=== PATIENT | female | born 1995 | race Caucasian/White ===

== ENCOUNTER 2019-02-26 12:45 | Observation (INO) | payer OTHER ==
[~2019-02-26] VITALS: Ht 162.6 cm; Wt 105.5 kg
[~2019-02-26 12:45] MED LIST: IBUPROFEN600 MG PO; PERCOCET 5-3251 TAB PO; PRENAVITE1 TAB PO
[2019-02-26 12:50] VITALS: Ht 162.6 cm; Wt 105.5 kg
[2019-02-26] MEDS ORDERED: VITAMIN D2000 UNIT PO (12:52)
[2019-02-26] MEDS ORDERED: MAG-OX 400 MG400 MG PO (12:52)
--- NOTE | 2019-02-26 12:55 | NUR ---
URINE SENT TO THE LAB.
[2019-02-26 13:50] LABS: HEMATOCRIT 39.2 % (36.0-48.0); HEMOGLOBIN 13.5 g/dL (12-16); LYMPHOCYTES 45.7 % (15-50); MCH 29.4 pg (26.0-34.0); MCHC 34.4 g/dL (31.0-37.0); MCV 85.4 fL (80.0-100.0); NEUTROPHILS 47.2 % (40-80); PLATELET COUNT 239 10x3/uL (130-400); RBC 4.59 10x6/uL (4.00-5.40); RDW 12.8 % (11.5-14.5); WBC 6.6 10x3/uL (4.8-10.8)
[2019-02-26 13:54] LABS: HCG SERUM POSITIVE (NEGATIVE)
[2019-02-26 13:58] LABS: ALBUMIN 3.9 g/dL (3.4-5.0); ALKALINE PHOSPHATASE 51 U/L (46-116); ALT (SGPT) 26 U/L (10-68); CALC OSMOLALITY 278 mosm/kg (275-300); CALCIUM 8.9 mg/dL (8.5-10.1); CARBON DIOXIDE 25.9 mmol/L (21.0-32.0); CHLORIDE - SERUM 105 mmol/L (98-107); CREATININE - SERUM 0.8 mg/dL (0.6-1.3); GLUCOSE 98 mg/dL (74-106); POTASSIUM - SERUM 3.3 mmol/L (3.5-5.1); PROTEIN - SERUM 7.9 g/dL (6.4-8.2); SODIUM 140 mmol/L (136-145); UREA NITROGEN 13 mg/dL (7-18); eGFR NON AFRICAN AMERICAN > 90 mL/min (90-120)
[2019-02-26 14:05] LABS: HCG - QUANTITATIVE (MATERNAL) 375 mIU/mL
[2019-02-26 14:31] LABS: APPEARANCE CLOUDY (CLEAR); BILIRUBIN NEGATIVE (NEGATIVE); COLOR YELLOW (YELLOW); GLUCOSE NEGATIVE (NEGATIVE); KETONE NEGATIVE (NEGATIVE); NITRITE NEGATIVE (NEGATIVE); PROTEIN TRACE mg/dL (NEGATIVE); SPECIFIC GRAVITY 1.025 (1.005-1.020); UROBILINOGEN NORMAL (NORMAL); WHITE CELLS - URINE 0-5 /hpf (0-5)
[2019-02-26 14:32] LABS: BACTERIA MANY /hpf (NONE SEEN); EPITHELIAL CELLS 0-5 /hpf (0-5); MUCUS <1+ /lpf (NONE SEEN)
--- NOTE | 2019-02-26 15:20 | NUR ---
ERP OK WITH PROVIDING PT WITH FLUIDS TO FILL HER BLADDER. TWO LARGE CUPS OF ICE WATER PROVIDED.
--- NOTE | 2019-02-26 19:34 | NUR ---
DOMI FROM L&D CALLED REQUESTING PT BE SENT [place] TO RECOVERY ROOM ONCE ADMITTED.
[2019-02-26 20:14] VITALS: BP 140/78
--- NOTE | 2019-02-26 20:16 | NUR ---
PT REC'D TO LABOR AND DELIVERY VIA STRETCHER FROM ER WITH A DX OF VAGINAL BLEEDING/RULE OUT ECTOPIC . DR LEE ON THE WAY TO SEE PATIENT. Estefani HUGHES RN
--- NOTE | 2019-02-26 20:33 | NUR ---
DR LEE AT BEDSIDE AT THIS TIME. BEDISDE ULTRASOUND PERFORMED AT 2039. DICUSSSAMANTHA PLAN OF CARE AT LENGTH WITH PATIENT. PT GIVEN THE OPTION TO STAY UNTIL THE MORNING AND SEE DR LEE AT HIS OFFICE OR GOING HOME AND RETURNING TO HIS OFFICE. GAVE PT AND SPOUSE TIME TO DISCUSS OPTIONS. BENEFITS AND RISKS WERE EXPLAINED PER . Estefani HUGHES RN
--- NOTE | 2019-02-26 21:00 | NUR ---
SPOUSE OF PT STATES THAT PT WOULD LIKE TO BE DISCHARGED. MD MADE AWARE OF THEIR DECISION. MD INFORMED PT TO RETURN TO THE OFFICE TIN THE AM AND HE WOULD SEE HER. PT GIVEN AN APPOINTMENT CARD BY DR LEE. Estefani CULLEN RN
--- NOTE | 2019-02-26 21:13 | NUR ---
PT DISCHARGED IN STABLE CONDITION. PT REMINDED TO KEEP APPOINTMENT WITH DR LEE IN THE AM. UNDERSTANDING VERBALIZED. Estefani HUGHES RN
== END 2019-02-26 21:13 | disposition home or self-care (01) ==
LOC: D.ER 12:45 → D.LD 19:47 → OBSVTIME 19:47 → D.LD 21:13
PROVIDERS: Family Medicine; ADMIT Obstetrics & Gynecology; ATTEND Obstetrics & Gynecology
DX: O26.851 Spotting complicating pregnancy, first trimester (principal); Z3A.09 9 weeks gestation of pregnancy; O34.81 Maternal care for other abnormalities of pelvic organs, first trimester; D49.59 Neoplasm of unspecified behavior of other genitourinary organ

== ENCOUNTER 2019-07-23 08:39 | Emergency (ER) | payer OTHER ==
[~2019-07-23] VITALS: Ht 162.6 cm; Wt 110.0 kg
[~2019-07-23 08:39] MED LIST changes: +MAG-OX 400 MG400 MG PO; +VITAMIN D2000 UNIT PO
[2019-07-23 08:43] VITALS: BP 134/87; Ht 162.6 cm; Wt 110.0 kg
[2019-07-23 09:13] LABS: BASOPHILS 0.1 % (0-2); EOSINOPHILS 0.3 % (0-7); HEMATOCRIT 43.3 % (36.0-48.0); HEMOGLOBIN 14.6 g/dL (12-16); IMMATURE GRANULOCYTES 0.1 % (0-5); LYMPHOCYTES 30.1 % (15-50); MCH 29.4 pg (26.0-34.0); MCHC 33.7 g/dL (31.0-37.0); MCV 87.1 fL (80.0-100.0); MEAN PLATELET VOLUME 9.5 fL (7.4-10.4); MONOCYTES 6.9 % (2-11); NEUTROPHILS 62.5 % (40-80); PLATELET COUNT 258 10x3/uL (130-400); RBC 4.97 10x6/uL (4.00-5.40); RDW 12.6 % (11.5-14.5); WBC 7.4 10x3/uL (4.8-10.8)
[2019-07-23 09:14] LABS: CALC OSMOLALITY 272 mosm/kg (275-300); CALCIUM 8.9 mg/dL (8.5-10.1); CARBON DIOXIDE 24.4 mmol/L (21.0-32.0); CHLORIDE - SERUM 104 mmol/L (98-107); CREATININE - SERUM 0.6 mg/dL (0.6-1.3); GLUCOSE 95 mg/dL (74-106); POTASSIUM - SERUM 3.5 mmol/L (3.5-5.1); SODIUM 137 mmol/L (136-145); UREA NITROGEN 9 mg/dL (7-18); eGFR NON AFRICAN AMERICAN > 90 mL/min (90-120)
[2019-07-23 09:24] LABS: APPEARANCE CLOUDY (CLEAR); BACTERIA MODERATE /hpf (NEGATIVE); BILIRUBIN NEGATIVE (NEGATIVE); COLOR YELLOW (YELLOW); EPITHELIAL CELLS 0-5 /hpf (0-5); GLUCOSE NEGATIVE (NEGATIVE); KETONE NEGATIVE (NEGATIVE); MUCUS <1+ /lpf (NONE SEEN); NITRITE NEGATIVE (NEGATIVE); PROTEIN NEGATIVE (NEGATIVE); WHITE CELLS - URINE 0-5 /hpf (NEGATIVE)
[2019-07-23 09:42] LABS: ALBUMIN 3.6 g/dL (3.4-5.0); ALKALINE PHOSPHATASE 51 U/L (46-116); ALT (SGPT) 25 U/L (10-68); BILIRUBIN - TOTAL 0.29 mg/dL (0.2-1.3); HCG - QUANTITATIVE (MATERNAL) 154131 mIU/mL; PROTEIN - SERUM 7.6 g/dL (6.4-8.2)
== END 2019-07-23 10:24 | disposition home or self-care (01) ==
LOC: D.ER 08:39
PROVIDERS: Emergency Medicine
DX: O26.851 Spotting complicating pregnancy, first trimester (principal); Z3A.08 8 weeks gestation of pregnancy

== ENCOUNTER 2020-02-20 05:52 | Inpatient (IN) | payer MEDICAID ==
[2020-02-20] VITALS (8 sets, daily range): BP systolic 104–141; BP diastolic 54–71; Ht 162.6 cm; Wt 128.4 kg
[~2020-02-20] VITALS: Ht 162.6 cm; Wt 128.4 kg
--- NOTE | ~2020-02-20 | OP ---
PATIENT NAME: MELY HUTCHINS MEDICAL RECORD: [id number] :93 LOCATION:[id number] ADMISSION DATE:02/20/20 SURGEON: SHELTON GIRALDO MD DATE OF OPERATION: 02/20/2020 PREOPERATIVE DIAGNOSES: 1. Term intrauterine at 39 weeks. 2. History of previous section POSTOPERATIVE DIAGNOSES: 1. Term intrauterine at 39 weeks. 2. History of previous section SURGEON: Shelton Giraldo MD PROCEDURE: Repeat low transverse section. ANESTHESIA: Regional via spinal. INTRAVENOUS FLUIDS: Per anesthesia record. ESTIMATED BLOOD LOSS: 1000 cc. FINDINGS: 1. Viable infant, Apgars 9 at 1 and 9 at 5. 2. Placenta delivered manually intact, 3-vessel cord noted. 3. Normal adnexa bilaterally. COMPLICATIONS: None apparent. SPECIMENS: Include placenta and cord for gases. PROCEDURE IN DETAIL: The patient was taken to the operating room where regional anesthesia was achieved without any difficulty. The patient was then prepped and draped in normal sterile fashion in the dorsal supine position. SCDs were on and functioning normally. A Arboleda catheter had been placed and was draining freely. Following prep and drape, a repeat Pfannenstiel skin incision was made, extended downward to the underlying subcutaneous fat to level of the fascia. The fascia was then excised in the midline and extended laterally using the Amato scissors. The superior and inferior aspects of the fascial incision was then grasped with Austin clamps times 2, tented upward, and sharply dissected from underlying rectus muscle using the Amato scissors and the Bovie cautery. Rectus muscles were then bluntly in the midline. The peritoneum entered sharply at the superior aspect of the incision. The peritoneal incision was extended downward using the Metzenbaum scissors and a bladder blade was placed into the pelvis. A bladder flap was created by excising the anterior leaf of the broad ligament across the lower uterine segment. A low transverse incision was made, extended superiorly and inferiorly using the Pelosi method. The vertex was delivered atraumatically followed by the body. The was bulb suctioned upon delivery. Cord was clamped times 2, cut, and the was handed to the awaiting nursery team. Cord was obtained for gases and the placenta was removed manually and intact. A 3-vessel cord was noted. The uterus was exteriorized, cleared of all clots and debris and then vigorously massaged until good uterine tone was noted. The posterior cul-de-sac was then thoroughly irrigated and uterus was replaced into the pelvis. Anterior OPERATIVE REPORT [id number] MELY HUTCHINS cul-de-sac was then thoroughly irrigated and the uterine incision was found to be hemostatic. Counts were correct times 2 for needles, sponges, and instruments. The fascia was repaired with 0 loop PDS times 1. The skin was repaired with 3-0 Monocryl in a running subcutaneous fashion with Dermabond. The patient tolerated the procedure well, was transported to the postanesthesia recovery stable without incident. TRANSINT:[id number] Voice Confirmation ID: [id number] DOCUMENT ID: [id number] SHELTON GIRALDO MD CC: [id number] DICTATION DATE: 02/23/20806 STRAINER TENDER: 02/23/20 1023 DIS IN 02/22/20 [facility] [address] [id number]
--- NOTE | ~2020-02-20 | DS ---
PATIENT:MELY HUTCHINS :93 MEDICAL RECORD: [id number] DISCHARGE SUMMARY ADMISSION DATE: 02/20/20 DISCHARGE DATE: 02/22/20 The patient was admitted on 02/20/2020. HOSPITAL COURSE: A 24-year-old at 39 weeks, admitted for repeat section. The patient was noted to be A negative, group B strep negative, and rubella immune. PAST MEDICAL HISTORY: The patient reported no significant past medical history. PAST SURGICAL HISTORY: Significant for previous section. ALLERGIES: The patient also has history of previous ectopic . MEDICATIONS: Included vitamins. FAMILY HISTORY: The patient reported no significant past family history. SOCIAL HISTORY: Negative times 3. PHYSICAL EXAMINATION: On initial assessment: VITAL SIGNS: Are stable. The patient was afebrile and normotensive. LUNGS: Clear to auscultation. CARDIOVASCULAR: Regular rate and rhythm. PELVIC: Uterus was appropriately sized and nontender. EXTREMITIES: Lower extremities are free of erythema, swelling or Homans sign. wellbeing was reassuring with category 1 tracing in the 140s with moderate variability. ASSESSMENT AND PLAN: 1. Admission, term intrauterine at 39 weeks. 2. History of previous section. The patient was noted to be Rh negative. Plan at that time for repeat . Risks and benefits were explained. wellbeing was noted to be reassuring. Operative report is as dictated. The patient did well overnight on postop day #0, on Dilaudid DRAPERY CUTTER MACHINE with IV Toradol for pain control. The patient continued on IV fluids and started on clear liquid diet. SCDs were on and functioning normally overnight and a Arboleda catheter was left in place. The patient was advanced to the general diet overnight. On the morning of postop day #1, the patient continued to improve. Vital signs are stable. The patient was afebrile and normotensive. Hemoglobin was found to be appropriate for blood loss. The patient was advanced to p.o. pain meds and the Arboleda catheter was discontinued and ambulation begun. The patient continued to improve on postop day #1. On the morning of postop day #2, the patient remained afebrile and normotensive. The uterus was infraumbilical and appropriately tender. Incision was clean, dry and intact. The patient reported only minimal lochia overnight. The patient was discharged on postop day #2 with instructions to follow up in 1 week for wound check. TRANSINT:[id number] Voice Confirmation ID: [id number] DOCUMENT ID: [id number] DISCHARGE SUMMARY REPORT [id number] MELY HUTCHINS MICHAEL W MD CC: [id number] DICTATION DATE: 02/23/20809 ENDOCRINOLOGY TEACHER: 02/23/202153 DIS IN 02/22/20 [facility] [address] [id number]
[2020-02-20 06:22] LABS: HEMATOCRIT 35.8 % (36.0-48.0); HEMOGLOBIN 11.9 g/dL (12-16); MCH 27.4 pg (26.0-34.0); MCHC 33.2 g/dL (31.0-37.0); MCV 82.5 fL (80.0-100.0); MEAN PLATELET VOLUME 9.5 fL (7.4-10.4); RBC 4.34 10x6/uL (4.00-5.40); RDW 12.2 % (11.5-14.5); WBC 7.9 10x3/uL (4.8-10.8)
[2020-02-20] MEDS ORDERED: ZOFRAN4 MG PO (06:25)
--- NOTE | 2020-02-20 10:19 | NUR ---
rec'd pt back from or recovery post .
--- NOTE | 2020-02-20 11:00 | NUR ---
SHIFT ASSESSMENT COMPLETE. SEE FLOWSHEET FOR DOCUMENTATION. TENNIS DIRECTOR STARTED, VERIFIED WITH AKASH RN. TENNIS DIRECTOR EDUCATION COMPLETED. PT DENIES ANY QUESTION OR CONCERNS AT THIS TIME. RATES PAIN 0 ON A SCALE OF 0/10. ICE CHIPS GIVEN UPON REQUEST.
--- NOTE | 2020-02-20 12:05 | NUR ---
ROUNDING WITH PATIENT. INCENTIVE SPIROMETER EDUCATION COMPLETE. PT DENIES QUESTION ON IT. MODERATE RUBRA LOCHIA NOTED ON VAGINAL PAD. PT DENIES ANY PAIN AT THIS TIME. PAD CHANGED. SPRITE GIVEN TO PATIENT PER REQUEST.
--- NOTE | 2020-02-20 13:44 | NUR ---
ROUNDING ON PT. VAGINAL BLEEDING HAS SLOWED. RUBRA LOCHIA SMALL AMOUNT ON PAD. PAD CHANGED. PT DENIES PAIN. STATES FEELING IN LEGS STARTING TO COME BACK. DENIES NEEDS AT THIS TIME.
--- NOTE | 2020-02-20 14:30 | NUR ---
ROUNDING WITH PATIENT. VITALS STABLE. 150CC CLEAR URINE EMPTIED FROM OH CATHETER. SCD'S IN PLACE. MINIMAL BLOOD DRAINAGE ON PAD. PT DENIES PAIN OR NEEDS AT THIS TIME.
[2020-02-20 15:13] LABS: BASOPHILS 0.1 % (0-2); EOSINOPHILS 0.1 % (0-7); HEMATOCRIT 29.8 % (36.0-48.0); HEMOGLOBIN 9.7 g/dL (12-16); IMMATURE GRANULOCYTES 0.2 % (0-5); LYMPHOCYTES 15.5 % (15-50); MCH 27.2 pg (26.0-34.0); MCHC 32.6 g/dL (31.0-37.0); MCV 83.7 fL (80.0-100.0); MEAN PLATELET VOLUME 9.2 fL (7.4-10.4); MONOCYTES 8.7 % (2-11); NEUTROPHILS 75.4 % (40-80); RBC 3.56 10x6/uL (4.00-5.40); RDW 12.4 % (11.5-14.5)
[2020-02-20 15:20] LABS: PLATELET COUNT 196 10x3/uL (130-400); WBC 11.4 10x3/uL (4.8-10.8)
--- NOTE | 2020-02-20 17:00 | NUR ---
ROUNDING WITH PATIENT. PATIENT RATES PAIN 7/10 IN ABDOMEN/INCISION SITE. TORADOL GIVEN PER PATIENT REQUEST. EDUCATION PROVIDED ON TORADOL. MINIMAL BLEEDING ON AIDEN PAD. SCD'S ON. PT DENIES ANY NEEDS AT THIS TIME.
--- NOTE | 2020-02-20 18:28 | NUR ---
ROUNDING WITH PATIENT. PATIENT RATES PAIN 0/10. STATES FEELS MUCH BETTER AFTER TORADOL AND EATING. DENIES NEEDS AT THIS TIME.
--- NOTE | 2020-02-20 19:30 | NUR ---
REPORT GIVEN BY BISHOP ALFREDO
--- NOTE | 2020-02-20 20:00 | NUR ---
INTRODUCED SELF TO PT. EXPLAINED THAT I WOULD BE HER NURSE JORGE L. ALSO INFORMED PT AND HER THAT SHE WOULD BE MOVING TO ANOTHER ROOM IN THE NEXT FEW MINUTES. THEY PACKED THINGS UP AND ARE READY TO GO.
--- NOTE | 2020-02-20 20:30 | NUR ---
PT MOVED VIA BED TO THE TUB ROOM. THEY LIKE THEIR NEW ROOM. ASSESSMENT COMPLETED. PT SKIN WARM AND DRY. IV IN THE LEFT HAND INFUSING WELL. OH CATHETER IN PLACE DRAINING LIGHT MAYI COLORED URINE. SCD'S IN PLACE ON BILATERAL LEGS. PT HAS HER INCENTIVE SPIROMETER. SHE CAN GET THE METER TO 2000. SHE HAS BEEN INSTRUCTED ON THE USE AND ENCOURAGED TO CONT USE. HER INCISION LOOKS GOOD. NO DRAINAGE NOTED. SHE HAS A PAD COVERING THE INCISION. LOCHIS IS SMALL TO MED. SHE WAS CLEANED UP AND SOME CLOTS WERE RECOVERED. SHE HAS A DILAUDID DIRECT MARKETING EXECUTIVE PUMP AND SHE KNOWS HOW TO USE. SHE WILL START TO CRY EVERY NOW AND THEN OVER PAIN AND SHE IS REMINDED TO USE THE PAC PUMP. HER IS IN THE ROOM AND HE IS EXCEPTIONALLY ATTENTIVE TO BOTH PT AND THE BABY.
--- NOTE | 2020-02-20 22:00 | NUR ---
PT IS RESTING QUIETLY IN BED. NO C/O OR NEEDS AT THIS TIME. HOSE SPRAYER CONT. AT BEDSIDE.
--- NOTE | 2020-02-21 | NUR ---
SLEEPING QUIETLY. IV INFUSING AT 125 ML/HR. PT USING CHOIR MEMBER PUMP FOR PAIN. NO C/O OR NEEDS AT THIS TIME. ICE PACK GIVEN TO PT. SCD ON
--- NOTE | 2020-02-21 01:40 | NUR ---
IV CONVERTED TO SALINE LOCK, FLUSHED WITH 10MLS OF NS WITH NO DIFFICULTY, OH CATH REMOVED, TIP INTACT, PT INST ON WHEN NEEDING TO VOID, PT VERBALIZES UNDERSTANDING, PT STATES "I WANT TO GET UP NOW TO TRY AND PEE", PT UNABLE TO VOID, PT PLACED OWN AIDEN PAD AND PANTIES, BACK TO BED, SCD'S PLACED BACK ON AND WORKING PROPERLY, INFORMED PT THAT I WILL LOOK OVER ORDERS FOR PAIN MED AND ADM WHEN DUE, PT VERBALIZES UNDERSTANDING, DENIES FURTHER NEEDS, FOB AT BEDSIDE
--- NOTE | 2020-02-21 01:40 | NUR ---
IV CONVERTED TO SALINE LOCK, FLUSHED WITH 10MLS OF NS WITH NO DIFFICULTY, OH CATH REMOVED, TIP INTACT, PT INST ON WHEN NEEDING TO VOID, PT VERBALIZES UNDERSTANDING, INFORMED PT THAT I WILL LOOK OVER ORDERS FOR PAIN MED AND ADM WHEN DUE, PT VERBALIZES UNDERSTANDING, DENIES FURTHER NEEDS, FOB AT BEDSIDE
--- NOTE | 2020-02-21 02:10 | NUR ---
PT IS RESTING WELL. NO C/O OR NEEDS. CONT SCD. OH OUT BUT PT HAS NOT VOIDED.
--- NOTE | 2020-02-21 04:14 | NUR ---
PT AWAKE, ULYSSES BOND, BISHOP IN ROOM, OBTAINING VS, ADM PAIN MED PER MD ORDERS, SEE EMAR
[2020-02-21 04:36] VITALS: BP 121/72
--- NOTE | 2020-02-21 05:04 | NUR ---
PT WITH BABY. NO NEW C/O PT STATES HER PAIN IS A TWO.
[2020-02-21 06:19] LABS: BASOPHILS 0.1 % (0-2); EOSINOPHILS 0.3 % (0-7); HEMATOCRIT 31.3 % (36.0-48.0); IMMATURE GRANULOCYTES 0.1 % (0-5); LYMPHOCYTES 12.6 % (15-50); MCH 27.1 pg (26.0-34.0); MCHC 31.9 g/dL (31.0-37.0); MCV 84.8 fL (80.0-100.0); MEAN PLATELET VOLUME 9.5 fL (7.4-10.4); MONOCYTES 9.5 % (2-11); NEUTROPHILS 77.4 % (40-80); PLATELET COUNT 202 10x3/uL (130-400); RBC 3.69 10x6/uL (4.00-5.40); RDW 12.5 % (11.5-14.5); WBC 9.6 10x3/uL (4.8-10.8)
--- NOTE | 2020-02-21 06:51 | NUR ---
PT RESTING QUIETLY IN BED. NO C/O OR NEEDS AT THIS TIME.
--- NOTE | 2020-02-21 07:00 | NUR ---
BEDSIDE REPORT COMPLETED, REVIEWED TODAY'S PLAN OF CARE, EXPECTATIONS, AND GOALS. PT AMBULATORY IN ROOM, SIGNIFICANT OTHER IN ROOM PROVIDING ASSIST TO PT PRN. DENIES NEEDS/CONCERNS. WILL MONITOR.
[2020-02-21 07:14] LABS: RAPID PLASMA REAGIN Non Reactive (Non Reactive)
[2020-02-21 08:35] VITALS: BP 106/68
--- NOTE | 2020-02-21 08:35 | NUR ---
AM ASSESSMENT COMPLETE. SEE FLOWSHEET. PT SKIN WARM/DRY. IV LEFT HAND SL. SCD'S ON BILATERALLY. INCENTIVE SPIROMETER AT BEDSIDE, PT STATES HAS BEEN USING IT. INCISION LOOKS GOOD WITH NO DRAINAGE. RATES PAIN 0/10. PT HAS BEEN UP TO THE BATHROOM, AND WALKING AROUND IN ROOM. DENIES ANY ISSUES WITH VOIDING. AT BEDSIDE. CALL LIGHT IN PLACE. PT DENIES ANY QUESTIONS OR NEEDS AT THIS TIME.
--- NOTE | 2020-02-21 09:30 | NUR ---
HOURLY ROUNDING COMPLETE. PT UP AMBULATORY IN ROOOM TO BATHROOM. DENIES NEEDS AT THIS TIME.
--- NOTE | 2020-02-21 10:20 | NUR ---
HOURLY ROUNDING COMPLETE. PT STATES PAIN IN ABDOMEN 11/13. PAIN MEDICATION GIVEN PER REQUEST. PT STATES HAD 500 CC OF URINE ( DUMPED URINE). PT DENIES ANY FURTHER NEEDS. CALL LIGHT IN REACH.
--- NOTE | 2020-02-21 11:20 | NUR ---
HOURLY ROUNDING COMPLETED. PAIN REASSESSMENT DONE. RATES PAIN 08/15. CALL LIGHT IN REACH. DENIES NEEDS AT THIS TIME.
[2020-02-21 12:57] VITALS: BP 138/69
--- NOTE | 2020-02-21 12:57 | NUR ---
HOURLY ROUNDING COMPLETE. VSS. PATIENT EATING LUNCH AT THIS TIME. PATIENT DENIES NEEDS AT THIS TIME. CALL LIGHT IN REACH.
[2020-02-21] MEDS ORDERED: HYDROCODON-ACE1 EA10 PO (14:50)
[2020-02-21] MEDS ORDERED: IBUPROFEN600 MG PO (14:50)
--- NOTE | 2020-02-21 15:00 | NUR ---
ROUNDING COMPLETE. PATIENT DENIES NEEDS AT THIS TIME. CALL LIGHT IN REACH.
[2020-02-21 16:30] VITALS: BP 133/75
--- NOTE | 2020-02-21 16:30 | NUR ---
ROUNDING COMPLETE. VSS. RHOGRAM GIVEN IM (RIGHT). EDUCATION PROVIDED TO PATIENT AND . PATIENT DENIES ANY QUESTIONS OR NEEDS AT THIS TIME.
--- NOTE | 2020-02-21 17:28 | NUR ---
ROUNDING COMPLETE. PATIENT DENIES ANY NEEDS AT THIS TIME. CALL LIGHT IN REACH. IN ROOM.
--- NOTE | 2020-02-21 18:24 | NUR ---
ROUNDING COMPLETE. PATIENT RATES PAIN 4/10. PAIN MEDICATIONS GIVEN PER REQUEST. PATIENT DENIES NEEDS AT THIS TIME.
--- NOTE | 2020-02-21 18:49 | NUR ---
ROUNDING COMPLETE. PATIENT IN SHOWER. DENIES NEEDS AT THIS TIME.
[2020-02-21 19:09] VITALS: BP 139/66
--- NOTE | 2020-02-21 19:09 | NUR ---
RN TO PT BEDSIDE FOR ROUNDING. PT STATES PAIN IS 1-2/10 ON PAIN SCALE, PT JUST GOT OUT OF THE SHOWER, IV WAS REMOVED AT THAT TIME. VSS. FUNDUS IS FIRM, MIDLINE, 2 BELOW UMBILICUS, SCANT RUBRA LOCHIA NO CLOTS. PT PERFORMED INCENTIVE SPIROMETRY, GOOD COUGH & DEEP BREATH. PT DENIES NEEDS AT THIS TIME, PT WILL CALL OUT IF SHE HAS ANY NEEDS. BED IN LOWEST POSITION, SIDE RAILS UPX2, CALL LIGHT IN REACH.
--- NOTE | 2020-02-21 21:24 | NUR ---
RN TO PT BEDSIDE FOR ROUNDING, PT DENIES ANY NEEDS AT THIS TIME.
--- NOTE | 2020-02-22 00:03 | NUR ---
RN TO PT BEDSIDE, INFANT IN ARMS, PT DENIES ANY NEEDS AT THIS TIME.
--- NOTE | 2020-02-22 00:55 | NUR ---
RN TO PT BEDSIDE FOR ROUNDING, PT STATES PAIN 3/10 TO BREAST BILATERALLY AND TO ABDOMINAL INCISION, MOTRIN 600MG PO AND NORCO 10 PO ADMINISTERED TO PT. PT DENIES ANY OTHER NEEDS AT THIS TIME, FUNDUS IS FIRM, MIDLINE, 2 BELOW, SCANT RUBRA LOCHIA. BED IN LOWEST POSITION, SIDE RAILS UPX2, CALL LIGHT IN REACH.
--- NOTE | 2020-02-22 02:00 | NUR ---
RN TO PT BEDSIDE, PT SLEEPING AT THIS TIME.
[2020-02-22 04:02] VITALS: BP 118/59
--- NOTE | 2020-02-22 04:02 | NUR ---
RN TO PT BEDSIDE FOR ROUNDING, VSS. PT RESTING AT THIS TIME. DENIES ANY NEEDS.
[2020-02-22 07:40] VITALS: BP 110/74
--- NOTE | 2020-02-22 07:40 | NUR ---
ASSESSMENT COMPLETE. SEE FLOWSHEET. PATIENT ALERT AND ORIENTED X4. VSS. DENIES PAIN. PATIENT SKIN WARM AND DRY. INCISION LOOKS GOOD. NO DRAINAGE NOTED. PATIENT UP AMBULATORY IN ROOM. DENIES NEEDS AT THIS TIME. CALL LIGHT IN REACH.
--- NOTE | 2020-02-22 08:20 | NUR ---
ABDOMINAL BINDER GIVEN TO PATIENT PER REQUEST. PATIENT DENIES ANY QUESTIONS OR CONCERNS AT THIS TIME.
--- NOTE | 2020-02-22 09:30 | NUR ---
ROUNDING COMPLETE. DENIES NEEDS AT THIS TIME. CALL LIGHT IN REACH. IN ROOM.
--- NOTE | 2020-02-22 10:10 | NUR ---
ROUNDING COMPLETE. DISCHARGE INSTRUCTIONS GIVEN TO PATIENT AND SIGNED BY PATIENT. PATIENT AND VERBALIZED UNDERSTANDING AND AGREEMENT. DENIES ANY QUESTIONS OR CONCERNS AT THIS TIME. AWAITING PEDIATRICS TO DISCHARGE BABY.
--- NOTE | 2020-02-22 11:11 | NUR ---
ROUNDING COMPLETE. PATIENT RATES PAIN 2/10. IBUPROFEN GIVEN PER REQUEST. PATIENT DENIES ANY OTHER NEEDS AT THIS TIME. CALL LIGHT IN REACH. IN ROOM HOLDING BABY.
--- NOTE | 2020-02-22 13:00 | NUR ---
PATIENT DISCHARGED TO HOME VIA WHEELCHAIR TO PRIVATE CAR. PATIENT DENIED ANY QUESTIONS OR CONCERNS AT TIME OF DISCHARGE.
== END 2020-02-22 12:55 | disposition home or self-care (01) | DRG 788 ==
LOC: D.LD 05:52 → D.SDCHOLD 07:30 → D.LD 21:31
PROVIDERS: ADMIT Obstetrics & Gynecology; ATTEND Obstetrics & Gynecology
PROC: 10D00Z1 Extraction of Products of Conception, Low, Open Approach (ICD-10-PCS; principal; 2020-02-20 07:30)
DX: O99.214 Obesity complicating childbirth (principal); E66.9 Obesity, unspecified; Z3A.39 39 weeks gestation of pregnancy; Z37.0 Single live birth; O34.211 Maternal care for low transverse scar from previous cesarean delivery

== ENCOUNTER 2020-02-25 16:32 | Emergency (ER) | payer MEDICAID ==
[~2020-02-25] VITALS: Ht 162.6 cm; Wt 124.1 kg
[~2020-02-25 16:32] MED LIST changes: +HYDROCODON-ACE1 EA10 PO; +ZOFRAN4 MG PO
[2020-02-25 16:38] VITALS: BP 157/87; Ht 162.6 cm; Wt 124.1 kg
== END 2020-02-25 18:30 | disposition left against medical advice (07) ==
LOC: D.ER 16:32
DX: R21 Rash and other nonspecific skin eruption (principal); R22.43 Localized swelling, mass and lump, lower limb, bilateral